=== PATIENT | male | born 1980 | race Caucasian/White ===

== ENCOUNTER 2019-02-20 14:57 | Emergency (ER) | payer OTHER, SELFPAY ==
[2019-02-20 15:30] LABS: Bilirubin Small (Negative); Blood, Urine Large (Negative); Clarity Cloudy (Clear); Glucose, Urine (Dipstick) Negative (Negative); Leukocyte Negative (Negative); Nitrite Negative (Negative); Protein, Urine (Dipstick) 30 mg/dL (Neg-Trace)
[2019-02-20 15:32] LABS: Bacteria/HPF Rare-Few HPF (None Seen); RBC/HPF Greater than 50 HPF (0-3); Squamous Epithelial 0-3 HPF (0-3)
[2019-02-20 15:41] LABS: #Basophils 0.1 thou/uL (0.0-0.2); #Lymphocytes 3.7 thou/uL (1.20-3.40); #Monocytes 0.9 thou/uL (0.11-0.59); #Neutrophils 6.9 thou/uL (1.40-6.50); %Basophils 0.5 % (0.0-1.0); %Eosinophils 0.3 % (0.0-10.0); %Lymphocytes 32.2 % (21.0-51.0); %Monocytes 7.6 % (0.0-10.0); %Neutrophils 59.5 % (42.0-75.0); Hemoglobin 15.6 g/dL (14.0-18.0); Mean Corpuscular HGB CONC 33.1 g/dL (32.0-36.0); Mean Corpuscular Hemoglobin 31.9 pg (27.0-31.0); Mean Corpuscular Volume 96.6 fL (78.0-98.0); Mean Platelet Volume 6.4 fL (7.4-10.4); Platelet Count 488 thou/uL (130-400); Red Blood Cell (RBC) Count 4.88 mill/uL (4.70-6.10); White Blood Cell (WBC) Count 11.5 thou/uL (4.8-10.8)
[2019-02-20 15:48] LABS: PTT 59.9 SEC (22.9-36.1); Prothrombin Time 47.7 SEC (12.0-14.7)
--- NOTE | 2019-02-20 15:50 | CT ---
Exam: Abdomen CT without contrast Pelvic CT without contrast HISTORY: Pain. Hematuria. COMPARISON: None FINDINGS: Abdomen CT: Lung bases:Clear Heart size: Normal heart size. Aorta: Normal caliber. No periaortic fat stranding Solid organs: Limited evaluation by the lack of IV contrast. Grossly no solid organ abnormality Lymph nodes: No gastrohepatic, retrocrural or periportal lymphadenopathy Gallbladder: Unremarkable Mesentery: No mass, lymphadenopathy, free air or free fluid Kidneys: Bilaterally, no hydronephrosis, nephrolithiasis or perinephric fat stranding. Bilateral uret ers have a normal caliber. No hydroureter, periureteral fat stranding or ureterolithiasis. Exophytic hypodensity emanating from the midpole the left kidney measures 3.1 x 2.6 cm. Attenuation c oefficient is 2 Hounsfield units suggesting a cyst. There does appear to be septation a small focus of peripheral calcification. Alimentary canal: Limited evaluation of the alimentary canal by the lack of oral contrast. No evidenc e of bowel obstruction. Ileocecal junction is markable. Normal caliber appendix. Scattered fecal material in a nondistended, nondilated colon. Diverticulosis, without evidence of diverticulitis. CT PELVIS: No mass, adenopathy, free air or free fluid. Urinary bladder: Decompressed, limiting evaluation of the bladder mucosa Osseous structures: No lytic or blastic lesions IMPRESSION: 1. No evidence of nephrolithiasis or obstructive uropathy. 2. No evidence of bowel obstruction. Normal caliber appendix 3. Diverticulosis, without evidence of diverticulitis 4. Type IIF Bosniak cyst. Follow-up imaging in 6 months is recommended. CODE T
[2019-02-20 15:51] LABS: INR-International Normal Ratio 5.3
[2019-02-20 15:55] LABS: ALT (SGPT) 11 U/L (8-55); AST (SGOT) 13 U/L (5-34); Albumin 3.8 g/dL (3.5-5.0); Alkaline Phosphatase 60 U/L (40-110); Anion Gap 15 mmol/L (10-20); BUN (Urea Nitrogen) 4 mg/dL (8.9-20.6); Bilirubin, Total 0.9 mg/dL (0.2-1.2); CK (CPK) 62 U/L (30-200); Calc. Creatinine Clearance 0 mL/min (70-130); Carbon Dioxide 27 mmol/L (22-29); Chloride 104 mmol/L (98-107); Estimated GFR-MDRD Greater than 90; Globulin 3.1 g/dL (2.4-3.5); Glucose 106 mg/dL (70-105); Protein, Total 6.9 g/dL (6.0-8.3); Sodium 143 mmol/L (136-145)
[2019-02-20 15:57] LABS: Potassium 2.8 mmol/L (3.5-5.1)
[2019-02-20] MEDS ORDERED: Potassium Chloride 20 MEQ TAB ONE (16:07)
== END 2019-02-20 16:18 | disposition home or self-care (01) ==
LOC: SCSER 14:57
DX: N28.1 Cyst of kidney, acquired (principal); E87.6 Hypokalemia; R79.1 Abnormal coagulation profile; F41.9 Anxiety disorder, unspecified; F17.210 Nicotine dependence, cigarettes, uncomplicated; Z86.718 Personal history of other venous thrombosis and embolism; Z79.01 Long term (current) use of anticoagulants; Z79.899 Other long term (current) drug therapy
CPT/HCPCS: 74176; 80053; 81003; 81015; 82550; 85025; 85610; 85730